=== PATIENT | male | born 1960 | race Caucasian/White ===

== ENCOUNTER → 2017-04-29 | Outpatient (CLI) | payer OTHER ==
--- NOTE | 2017-04-30 09:57 | CONS ---
CONSULTATION Date of Consultation: DATE OF SERVICE: 04/29/2017 56-year-old gentleman who has been evaluated in the [facility] for possible obstructive sleep apnea-hypopnea syndrome. HISTORY OF PRESENT ILLNESS: Sleep-wake Evaluation: Patient's usual sleep schedule is from around 9:00 -10:00 p.m. until 6:00 a.m. No problem with the falling is sleep. No TV in bedroom. According to his , he snores and has episodes of stopping breathing during his sleep. The patient wakes up from sleep 2 times with nocturia. Sometimes feels sleepy during the day. [place] Sleepiness Scale is 6. He may feel sleepiness usually in the middle of the day in the afternoon; if he has time at that time he may fall asleep. No history of hypnagogic hallucinations, sleep paralysis or cataplexy. PAST MEDICAL HISTORY: Positive for paroxysmal atrial fibrillation 6 episode, 3 had been converted by defibrillation and the others resolved by itself. Hypertension, hyperlipidemia. PAST SURGICAL HISTORY: None. MEDICATIONS: 1. Aspirin. 2. Sotalol. 3. Crestor. 4. Benicar. 5. Diltiazem. 6. Xarelto. SOCIAL HISTORY: Negative for smoking. Alcohol consumption up to three glasses of wine up to 6 times a week. FAMILY HISTORY: Hypertension, heart problems, hyperlipidemia and snoring. REVIEW OF SYSTEMS: Multiple awakenings from sleep with nocturia. Sometimes tiredness and sleepiness during the day. Recently swelling of the legs. PHYSICAL EXAM: GENERAL: During physical exam, a 56-year-old, gentleman without distress. VITAL SIGNS: BP 134/84, HR 70, RR 16, height 5 feet 11 inches, weight 240, BMI 33.4. Neck 17-1/4 inch in circumference. Temperature 98.2, O2 saturation room air 97%. HEENT: PERRLA, EOMI. Evaluation of oropharynx showed moderately low position of soft palate, short distance between soft palate and pharyngeal wall. Nasal septum deviation. NECK: Supple, no JVD. Thyroid is not palpable. LUNGS: Clear to percussion and to auscultation. Good air exchange. No wheezing or rhonchi. HEART: S1, S2 regular. No murmurs, gallops, or rubs. ABDOMEN: Obese. Soft and nontender. Bowel sounds are present. No organomegaly appreciated. EXTREMITIES: 1+ bilateral ankle edema. No clubbing or cyanosis. CONCRETE ROD BUSTER: Awake, alert, and oriented X3. Cranial nerves 2 to 7 intact. There is no fasciculation or atrophy. noted. No focal deficits observed. IMPRESSION: 1. Snoring, witnessed episodes of stopped breathing during the sleep, low position of soft palate, multiple awakenings from sleep, sometimes sleepiness during the day. Obstructive sleep apnea-hypopnea syndrome. 2. Mild obesity, BMI 33.4. 3. Episodes of paroxysmal atrial fibrillation, 6 episodes, 3 converted to normal sinus rhythm by defibrillation. 4. Hypertension. 5. Hyperlipidemia. 6. Nasal septum deviation, possibly secondary to trauma secondary to sport activities. 7. 1+ ankle edema. 8. Alcohol consumption up to 3 wine drinks up to 6 times per week. PLAN: 1. The patient will have treatment with positive air pressure equipment and should use it every night for the whole night. 2. Losing weight. 3. Sleep hygiene with regular time in bed for at least 8 hours. 4. No driving if feeling any sleepiness. Patient is aware about civil and criminal liability for unsafe driving. 5. I will see the patient for follow up visit to explain the results of the test, recommendations, check compliance with treatment and make any necessary adjustment related to mask fitting, pressure and humidification. Thank you very much for referring this patient for consultation. Galo Luong MD, PhD, FAASM Diplomat of [employer] Machine Operator of [facility] [place] MMODL / JUAN M: [id number] /
== END ==
LOC: SLEEP 14:36
PROVIDERS: ATTEND Internal Medicine
DX: G47.33 Obstructive sleep apnea (adult) (pediatric) (principal); E66.9 Obesity, unspecified; I48.0 Paroxysmal atrial fibrillation; I10 Essential (primary) hypertension; E78.5 Hyperlipidemia, unspecified; Z68.33 Body mass index [BMI] 33.0-33.9, adult; Z79.899 Other long term (current) drug therapy; Z79.82 Long term (current) use of aspirin
CPT/HCPCS: 99211

== ENCOUNTER → 2017-06-09 | Outpatient (CLI) | payer OTHER ==
--- NOTE | 2017-06-09 17:53 | PN ---
PROGRESS NOTE DATE OF SERVICE: 06/09/2017 56-year-old gentleman has been followed in Sleep Center to discuss results of polysomnogram. I discussed results of polysomnogram with the patient in detail. He has mild obstructive sleep apnea-hypopnea syndrome with apnea-hypopnea index of 8.0, in REM sleep 63.9 with oxygen desaturation to 81.5%. The patient has history of hypertension and atrial fibrillation, so treatment with CPAP is indicated. I discussed with patient in details about CPAP treatment, different types of the mask, which could be used. Patient also asked about other options for treatment of obstructive sleep apnea , and I explained him disability for treatment with surgery, dental appliances and losing weight. MEDICATIONS: 1. Aspirin. 2. Sotalol. 3. Crestor. PHYSICAL EXAM: Patient in no distress. BP 113/72, HR 56, RR 16, temp 98.2, oxygen saturation on room air 99%, weight 238 pounds. Evaluation of oropharynx showed tongue protrudes midline; moderately low position of soft palate. Short distance between soft palate and pharyngeal wall. EXTREMITIES: No edema. Neck Supple, no JVD. Thyroid is not palpable. LUNGS Clear to percussion and to auscultation. Good air exchange. No wheezing or rhonchi. HEART S1, S2 regular. No murmurs, gallops, or rubs. ABDOMEN Soft and nontender. Bowel sounds are present. No organomegaly appreciated. EXTREMITIES No clubbing or cyanosis. RANGE FEEDER Awake, alert, and oriented X3. Cranial nerves 2 to 7 intact. There is no fasciculation or atrophy. noted. No focal deficits observed. IMPRESSION: 1. Mild obstructive sleep apnea-hypopnea syndrome. 2. Mild obesity. 3. Several episodes of paroxysmal atrial fibrillation, which could be related to sleep apnea. 4. Hypertension. 5. Hyperlipidemia. 6. Nasal septum deviation possibly to sport activities in the past. PLAN: 1. CPAP titration. 2. Watching and losing weight. 3. Sleep hygiene with regular time in bed for at least 8 hours 4. 4. No driving if feeling any sleepiness. Thank you very much for allowing me to participate in management of your patient. Galo Luong MD, PhD, FAASM Diplomat of [employer] Design Engineer [employer] of [facility] [place] MMODL / IJN: [id number] / LAURA
== END | disposition home or self-care (01) ==
LOC: SLEEP 15:46
PROVIDERS: ATTEND Internal Medicine
DX: G47.33 Obstructive sleep apnea (adult) (pediatric) (principal); E66.9 Obesity, unspecified; I48.0 Paroxysmal atrial fibrillation; I10 Essential (primary) hypertension; E78.5 Hyperlipidemia, unspecified; J34.2 Deviated nasal septum; Z79.82 Long term (current) use of aspirin; Z79.899 Other long term (current) drug therapy

== ENCOUNTER → 2017-10-07 | Outpatient (CLI) | payer OTHER ==
--- NOTE | 2017-10-07 11:15 | PN ---
PROGRESS NOTE FOLLOW-UP VISIT DATE OF SERVICE: 10/07/2017 A 57-year-old gentleman has been followed in sleep center for treatment of obstructive sleep apnea-hypopnea syndrome. Recently patient had been diagnosed with mild obstructive sleep apnea-hypopnea syndrome, but quite severe in REM sleep. I discussed results of the sleep studies with the patient. He was started on treatment with auto BiPAP, range of pressure of 5 to 15. I checked his CPAP unit. CPAP pressure is 10 cm of water. Leak is up to 28 L/minute, which is acceptable range. Ramp 30 minutes. Apnea-hypopnea index from the reading around 4, last night is 4.4. The patient does not have problem with the mask, but he does not feel very comfortable with the machine. He used machine practically every night 27/30 nights, but it was about 40% of the time when he used it for more than 4 hours. [place] Sleepiness Scale today is 6. MEDICATIONS: Sotalol, Crestor, Benicar, diltiazem, . PHYSICAL EXAM: During physical exam, patient in no distress. VITAL SIGNS: BP 125/74, HR 56, RR 16, weight 242, temp 98.1, oxygen saturation room air 95%. HEENT: PERRLA, EOMI Oropharynx extremely low position of soft palate. NECK: Supple, no JVD. Thyroid is not palpable. LUNGS: Clear to percussion and to auscultation. Good air exchange. No wheezing or rhonchi. HEART: S1, S2 regular. No murmurs, gallops, or rubs. ABDOMEN: Slightly obese. EXTREMITIES No clubbing or cyanosis. PRINCIPLE SOFTWARE ENGINEER Awake, alert, and oriented X3. Cranial nerves 2 to 7 intact. There is no fasciculation or atrophy. noted. No focal deficits observed. IMPRESSION: 1. Mild obstructive sleep apnea-hypopnea syndrome. Patient started to use CPAP equipment benefitting from treatment. 2. History of atrial fibrillation. 3. Hypertension. 4. Hyperlipidemia. 5. Nasal septum deviation, possibly secondary to trauma. PLAN: 1. Continue treatment with CPAP every night for the whole night. 2. Losing weight. 3. Sleep hygiene with regular time in bed for at least 7.5 hours. 4. No driving if feeling any sleepiness. Thank you very much for allowing me to participate in management of your patient. Sincerely, Galo Luong, MD, PhD, FAASM Diplomat of [employer] Fourth Grade Teacher of [facility] [place] MMALEN / JUAN M: [id number] /
== END | disposition home or self-care (01) ==
LOC: SLEEP 10:08
PROVIDERS: ATTEND Internal Medicine
DX: G47.33 Obstructive sleep apnea (adult) (pediatric) (principal); I10 Essential (primary) hypertension; E78.5 Hyperlipidemia, unspecified; J34.2 Deviated nasal septum; Z86.79 Personal history of other diseases of the circulatory system; Z99.89 Dependence on other enabling machines and devices; Z79.899 Other long term (current) drug therapy